=== PATIENT | male | born 1955 | race Caucasian/White ===

== ENCOUNTER 2016-07-22 00:35 | Emergency (ER) | payer MEDICAID, OTHER ==
[~2016-07-22] VITALS: Ht 182.9 cm; Wt 122.5 kg
[2016-07-22 00:41] VITALS: BP 146/85
--- NOTE | 2016-07-22 00:56 | NUR ---
Patient being evaluated by physician IN TRIAGE RM.
[2016-07-22 01:20] VITALS: BP 146/85
--- NOTE | 2016-07-22 01:20 | NUR ---
Patient discharged with v/s stable. Written and verbal after care instructions given and explained. Patient verbalized understanding. Ambulatory with steady gait. All questions addressed prior to discharge. Advised to follow up with PMD.
== END 2016-07-22 01:20 | disposition home or self-care (01) ==
LOC: MED 00:35
DX: K91.840 Postprocedural hemorrhage of a digestive system organ or structure following a digestive system procedure (principal); K21.9 Gastro-esophageal reflux disease without esophagitis; I48.91 Unspecified atrial fibrillation
CPT/HCPCS: 99283

== ENCOUNTER 2017-12-14 23:07 | Emergency (ER) | payer OTHER ==
[~2017-12-14] VITALS: Ht 182.9 cm; Wt 124.7 kg
[2017-12-14 23:08] VITALS: BP 141/90
--- NOTE | 2017-12-14 23:12 | NUR ---
PT TAKEN TO BED 4
--- NOTE | 2017-12-14 23:18 | NUR ---
C/O INTERMITTENT LEFT SIDED CP X 5 HOURS.DENIES N/V/D; SKIN IS PINK/WARM/DRY; AAOX4 WITH EVEN AND STEADY GAIT; LUNGS CLEAR BL; HR EVEN AND REGULAR; PT DENIES ANY FEVER, SOB, OR COUGH AT THIS TIME; PATIENT STATES PAIN OF 3/10 AT THIS TIME; VSS; PATIENT POSITIONED FOR COMFORT; HOB ELEVATED; BEDRAILS UP X2; BED DOWN. ER MD MADE AWARE OF PT STATUS.
[2017-12-14] MEDS ORDERED: NITROGLYCERIN 0.4 MG TAB SL ONE (23:40)
[2017-12-14] MEDS ORDERED: ASPIRIN 325 MG TAB PO ONE (23:40)
--- NOTE | 2017-12-14 23:40 | NUR ---
HOOKED PT TO MONITOR SHOWS A-FIB, BP 153/97. O2 SATS 99%. MADE AWARE.
--- NOTE | 2017-12-14 23:50 | NUR ---
X-Ray at bedside.
--- NOTE | 2017-12-15 00:08 | NUR ---
Dr. Arthur evaluating patient at bedside.
[2017-12-15 00:21] LABS: BASOPHILS % (AUTO) 0.5 % (0.0-2.0); EOSINOPHILS # (AUTO) 0.2 K/uL (0-0.4); EOSINOPHILS % (AUTO) 3.1 % (0.0-4.0); HEMATOCRIT 45.5 % (36-52); HEMOGLOBIN 15.5 g/dL (12.0-18.0); LYMPHOCYTES # (AUTO) 1.5 K/uL (2.0-11.5); LYMPHOCYTES % (AUTO) 28.4 % (20.5-51.1); MEAN CORPUSCULAR HEMOGLOBIN 31 pg (27-31); MEAN CORPUSCULAR HGB CONC 34 g/dL (33-37); MEAN CORPUSCULAR VOLUME 90.4 fL (80-94); MONOCYTES # (AUTO) 0.5 K/uL (0.8-1.0); MONOCYTES % (AUTO) 9.7 % (1.7-9.3); NEUTROPHILS % (AUTO) 58.3 % (42.2-75.2); PLATELET COUNT (AUTO) 159 K/uL (140-450); RED BLOOD CELL COUNT(AUTO) 5.04 MIL/uL (4.20-6.10); RED CELL DISTRIBUTION WIDTH 14.4 % (11.6-13.7); WHITE BLOOD COUNT (AUTO) 5.2 K/uL (4.8-10.8)
[2017-12-15 00:33] LABS: ANION GAP 11.1 (8-16); CARBON DIOXIDE 29.3 mmol/L (21-32); CREATININE 0.9 mg/dL (0.7-1.3); POTASSIUM 4.4 mmol/L (3.5-5.1)
[2017-12-15] MEDS ORDERED: DICYCLOMINE HCL LIQUID 20 MG, ALUMINUM HYD/MAG/SIMETHICONE 30 ML, LIDOCAINE VISCOUS 2% ... PO ONE ×3 (00:35)
[2017-12-15 00:39] LABS: ALBUMIN 3.6 g/dL (3.4-5.0); MAGNESIUM 1.8 mg/dL (1.8-2.4); TOTAL BILIRUBIN 0.4 mg/dL (0.0-1.0)
[2017-12-15 00:46] LABS: CREATINE KINASE MB 14.2 ng/mL (0-3.6)
--- NOTE | 2017-12-15 01:10 | NUR ---
PT STATED PAIN RELIVED. REPORT GIVEN TO JUSTIN ALONZO.
--- NOTE | 2017-12-15 01:15 | NUR ---
REPORT RECEIVED FROM CHERI SPENCE
--- NOTE | 2017-12-15 02:08 | NUR ---
Dr. Arthur re-evaluating patient at bedside.
[2017-12-15 04:12] VITALS: BP 124/70
== END 2017-12-15 04:12 | disposition home or self-care (01) ==
LOC: MED 23:07
DX: R07.9 Chest pain, unspecified (principal); K21.9 Gastro-esophageal reflux disease without esophagitis; R94.31 Abnormal electrocardiogram [ECG] [EKG]
CPT/HCPCS: 36415; 71045; 80053; 82550; 82553; 83690; 83735; 84484; 85025; 85610; 85730; 93005; 99285

== ENCOUNTER 2017-12-27 05:46 | Inpatient (IN) | payer OTHER ==
[~2017-12-27] VITALS: Ht 182.9 cm; Wt 122.5 kg
[2017-12-27 05:49] VITALS: BP 146/4
--- NOTE | 2017-12-27 05:49 | NUR ---
TO ER BED 6
[2017-12-27] MEDS ORDERED: NACL 0.9% 1,000 ML IV ONE (05:50)
[2017-12-27] MEDS ORDERED: ASPIRIN 81 MG TAB.CHEW PO ONE (05:50)
--- NOTE | 2017-12-27 05:55 | NUR ---
PT PRESENTED ER WITH C/O CHEST PAIN, ONSET AT 2300 LAST NIGHT. PT DESCRIBED HIS CHEST PAIN 6/10, GASSY, BLOATED, FEELS LIKE HE HAS TO BURP OR FLATULATE AND HAS STERNAL PRESSURE. PT WAS DIAPHORETIC. PT HAD A FIB ON THE EKG, AND HAS HISTORY OF A FIB. PT STATED IS ON COUMADIN FOR HIS A FIB. PT'S HX IS GERD, A FIB, GOUT AND HTN. PT HAS NKA. A/O X 4. PT DENIES N/V. STEADY GAIT; LUNGS CLEAR BL; VSS; PATIENT POSITIONED FOR COMFORT; HOB ELEVATED; BEDRAILS UP X2; BED DOWN. ER MD MADE AWARE OF PT STATUS.
[2017-12-27 06:20] LABS: BASOPHILS % (AUTO) 0.5 % (0.0-2.0); EOSINOPHILS # (AUTO) 0.2 K/uL (0-0.4); EOSINOPHILS % (AUTO) 3.7 % (0.0-4.0); HEMATOCRIT 47.6 % (36-52); HEMOGLOBIN 16.2 g/dL (12.0-18.0); LYMPHOCYTES # (AUTO) 1.7 K/uL (2.0-11.5); LYMPHOCYTES % (AUTO) 29.4 % (20.5-51.1); MEAN CORPUSCULAR HEMOGLOBIN 31 pg (27-31); MEAN CORPUSCULAR HGB CONC 34 g/dL (33-37); MONOCYTES # (AUTO) 0.6 K/uL (0.8-1.0); MONOCYTES % (AUTO) 10.3 % (1.7-9.3); NEUTROPHILS # (AUTO) 3.3 K/uL (1.8-7.7); NEUTROPHILS % (AUTO) 56.1 % (42.2-75.2); PLATELET COUNT (AUTO) 161 K/uL (140-450); RED BLOOD CELL COUNT(AUTO) 5.29 MIL/uL (4.20-6.10); RED CELL DISTRIBUTION WIDTH 14.3 % (11.6-13.7); WHITE BLOOD COUNT (AUTO) 5.8 K/uL (4.8-10.8)
[2017-12-27] MEDS ORDERED: NITROGLYCERIN 2% 1 GM PKT TP ONE (06:30)
[2017-12-27] MEDS ORDERED: PANTOPRAZOLE 40 MG INJ VIAL IVP ONE (06:30)
[2017-12-27 06:38] LABS: PROTHROMBIN TIME 17.8 secs (10.8-13.4)
[2017-12-27 06:42] LABS: ANION GAP 10.5 (8-16); CARBON DIOXIDE 31.8 mmol/L (21-32); CREATININE 0.8 mg/dL (0.7-1.3); POTASSIUM 4.3 mmol/L (3.5-5.1)
--- NOTE | 2017-12-27 06:45 | NUR ---
PT IS SITTING UP IN BED, VITALS STABLE. PT STATED THAT HIS PAIN LEVEL IS DOWN 3/10. MADE AWARE.
[2017-12-27 06:54] LABS: ALBUMIN 3.6 g/dL (3.4-5.0); TOTAL BILIRUBIN 0.6 mg/dL (0.0-1.0)
--- NOTE | 2017-12-27 07:10 | NUR ---
RECEIVED REPORT FROM VLADISLAV ALONZO FOR CONTINUITY OF CARE
[2017-12-27] MEDS ORDERED: ONDANSETRON 4 MG/2 ML VIAL IVP PRN (07:15)
[2017-12-27] MEDS ORDERED: HYDROcodone/APAP 5/325 MG 1 TAB TAB PO PRN ×2 (07:15)
[2017-12-27] MEDS ORDERED: ACETAMINOPHEN 325 MG TAB PO PRN (07:15)
[2017-12-27] MEDS ORDERED: LORazepam 2 MG/ML VIAL IVP PRN (07:15)
--- NOTE | 2017-12-27 07:45 | NUR ---
Patient will be admitted to care of DR IYER. Admited to TELE. Will go to room 123 A. Belongings list completed. Report to COLT ALONZO .
--- NOTE | 2017-12-27 07:45 | NUR ---
PT TAKEN TO FLOOR BY CHERI QUIROZ AND EMT GAIL
[2017-12-27 08:00] VITALS: BP 140/91
--- NOTE | 2017-12-27 08:00 | NUR ---
PATIENT ARRIVED ON [facility] UNIT FROM ER. ABLE TO AMBULATE FROM ER [facility] TO [facility] BED WITH STEADY GAIT. NO DISTRESS NOTED. PAIN WITHIN TOLERABLE AT THIS TIME. AAOX4, CALM, COOPERATIVE, SKIN COLOR APPROPRIATE TO ETHNICITY, WARM TO TOUCH. SKIN IS INTACT. RESPIRATIONS EVEN, UNLABORED, ON ROOM AIR. ABDOMEN SOFT, OBESE. ORIENTED PATIENT TO ROOM AND CALL LIGHT. REVIEWED PLAN OF CARE WITH PATIENT. PATIENT VERBALIZED UNDERSTANDING. SAFETY MEASURES IN PLACE, CALL LIGHT WITHIN REACH. WILL CONTINUE TO MONITOR.
--- NOTE | 2017-12-27 09:06 | NUR ---
PATIENT HAS BEEN SCREENED AND CATEGORIZED MODERATE NUTRITION RISK. PATIENT WILL BE SEEN WITHIN 3-5 DAYS OF ADMISSION. 12/29/17 12/31/[address]
[2017-12-27 09:16] LABS: CHOL/HDL RATIO 6.2 (1-4.5)
--- NOTE | 2017-12-27 09:50 | NUR ---
PATIENT LYING DOWN IN BED WATCHING TV. NO DISTRESS NOTED. DENIES ANY PAIN. CONDITION UNCHANGED. WILL CONTINUE TO MONITOR.
--- NOTE | 2017-12-27 10:15 | NUR ---
DR. IEYR AT BEDSIDE REVIEWING PLAN OF CARE WITH PATIENT. WILL CONTINUE TO MONITOR.
[2017-12-27 11:22] LABS: APPEARANCE,URINE CLEAR (CLEAR); BILIRUBIN,URINE NEGATIVE (NEGATIVE); BLOOD, URINE NEGATIVE (NEGATIVE); COLOR,URINE YELLOW (YELLOW); LEUKOCYTE ESTERASE ,URINE NEGATIVE (NEGATIVE); NITRITE, URINE NEGATIVE (NEGATIVE); UGLUCOSE NEGATIVE (NEGATIVE)
[2017-12-27] MEDS ORDERED: ALUMINUM HYD/MAG/SIMETHICONE 30 ML UDC PO PRN (11:35)
[2017-12-27 11:39] LABS: RBC,URINE 0-5 (RARE) /HPF (0-5); WBC,URINE 0-5 (RARE) /HPF (0-5)
[2017-12-27] MEDS ORDERED: ZYL300 PO (11:58)
[2017-12-27] MEDS ORDERED: BENA40TA PO (11:58)
[2017-12-27] MEDS ORDERED: WARF2.5T77 PO (11:58)
[2017-12-27] MEDS ORDERED: AMLO10TA PO (11:58)
[2017-12-27] MEDS ORDERED: PANT40EC PO (11:58)
[2017-12-27] MEDS ORDERED: WARF-18 PO (11:58)
[2017-12-27] MEDS ORDERED: SOTA80TA PO (11:58)
[2017-12-27 12:00] VITALS: BP 150/89
[2017-12-27] MEDS ORDERED: WARFARIN 5 MG TAB PO SCH ×2 (12:15→17:00)
[2017-12-27] MEDS ORDERED: amLODIPine 5 MG TAB PO SCH (12:33)
[2017-12-27] MEDS ORDERED: BENAZEPRIL 20 MG TAB PO SCH (12:33)
[2017-12-27] MEDS ORDERED: IPRATROPIUM 0.02% 0.5 MG/2.5 ML NEBU IH SCH (13:00)
--- NOTE | 2017-12-27 13:10 | NUR ---
PATIENT LYING DOWN IN BED. NO DISTRESS NOTED. DENIES ANY PAIN. SCHEDULED MEDICATIONS DUE GIVEN. SAFETY MEASURES IN PLACE, CALL LIGHT WITHIN REACH. WILL CONTINUE TO MONITOR.
[2017-12-27] MEDS ORDERED: SOTALOL 80 MG TAB PO SCH ×2 (13:30→21:00)
[2017-12-27 16:00] VITALS: BP 123/70
--- NOTE | 2017-12-27 17:00 | NUR ---
DR. MILLER AT BEDSIDE REVIEWING PLAN OF CARE WITH PATIENT. WILL CONTINUE TO MONITOR.
--- NOTE | 2017-12-27 17:30 | NUR ---
PATIENT LYING DOWN IN BED COMFORTABLY. DR. MILLER CLEARED PATIENT TO GO HOME. COUMADIN OFFERED AND PATIENT REFUSED AT THIS TIME. SAID HE WILL TAKE AT HOME LATER TONIGHT DURING HIS NORMAL TIME. WILL CONTINUE TO MONITOR.
--- NOTE | 2017-12-27 17:51 | NUR ---
PATIENT AMBULATED AROUND [facility]. DENIES CHEST PAIN WHEN PATIENT BACK TO BED. PER DR. MILLER. PATIENT CAN BE DISCHARGED HOME WITHOUT ANY CHEST PAIN IF AMBULATING AROUND [facility].
--- NOTE | 2017-12-27 18:45 | NUR ---
DISCHARGE INSTRUCTIONS PROVIDED TO PATIENT IN PREFERRED LANGUAGE OF MALAGASY, FOLLOW-UP VISITS WITH PCP AND BAND SAWYER, NEW/CHANGED MEDICATION REGIMEN, DIET REGIMEN, AND CAUSES OF ANGINA. ANSWERED ALL OF PATIENT'S QUESTIONS REGARDING DISCHARGE. PATIENT VERBALIZED COMPLETE UNDERSTANDING. ID BANDS REMOVED. IV SITE REMOVED WITH MINIMAL BLOOD AND LUMEN COMPLETELY INTACT. PATIENT ALL DRESSED UP AND READY TO GO HOME BY SELF DRIVING. ESCORTED PATIENT DOWN TO LOBBY VIA STEADY AMBULATION. PATIENT DISCHARGED TO HOME IN STABLE CONDITION AT THIS TIME.
[2017-12-27] MEDS ORDERED: ALLOPURINOL 300 MG TAB PO SCH (21:00)
[2017-12-28] MEDS ORDERED: PANTOPRAZOLE 40 MG TABEC PO SCH (06:30)
[2017-12-28] MEDS ORDERED: WARFARIN 5 MG TAB PO SCH (09:00)
[2017-12-28] MEDS ORDERED: amLODIPine 5 MG TAB PO SCH (09:00)
[2017-12-28] MEDS ORDERED: BENAZEPRIL 20 MG TAB PO SCH (09:00)
--- NOTE | 2017-12-28 14:17 | NUR ---
RETRO ER DR'S NOTE, H&P, CONSULTATION NOTE, DISCHARGE SUMMARY, PATIENT VISIT REPORT FAXED TO [facility] [phone] [place] # [phone]
[2017-12-29] MEDS ORDERED: WARFARIN 2.5 MG TAB PO SCH (09:00)
== END 2017-12-27 18:45 | disposition home or self-care (01) | DRG 243 ==
LOC: MED 05:46 → MTU 07:13
PROVIDERS: ADMIT Hospitalist; ATTEND Hospitalist
DX: K21.9 Gastro-esophageal reflux disease without esophagitis (principal); I11.9 Hypertensive heart disease without heart failure; E66.01 Morbid (severe) obesity due to excess calories; I48.91 Unspecified atrial fibrillation; Z90.49 Acquired absence of other specified parts of digestive tract; E78.5 Hyperlipidemia, unspecified; Z68.36 Body mass index [BMI] 36.0-36.9, adult; Z79.01 Long term (current) use of anticoagulants
CPT/HCPCS: 36415; 71045; 80053; 81001; 84484; 85025; 85610; 85730; 87081; 87086; 93005; 96374; 99285; C9113; J7030; Q0092